=== PATIENT | female | born 1950 ===

== ENCOUNTER 2023-02-12 05:00 | Inpatient (IN) | payer OTHER ==
[2023-02-05 08:50] LABS: HEMATOCRIT 35.7 % (36.0-45.00); MEAN CELL VOLUME 75.9 fL (80.00-100.00); MEAN CORPUSCULAR HEMOGLOBIN 25.4 pg (27.00-32.0); MEAN CORPUSCULAR HGB CONC 33.5 g/dl (32.0-36.0); PLATELET COUNT 287 K/uL (150-450); RED BLOOD COUNT 4.71 M/uL (4.00-6.00); RED CELL DISTRIBUTION WIDTH 15.4 % (11.5-14.5)
[2023-02-05 08:51] LABS: PH,URINE 6.5 (5.0-8.0); URINE APPEARANCE Clear; URINE BILIRRUBIN Negative (NEGATIVE); URINE BLOOD Small; URINE COLOR Yellow; URINE GLUCOSE Negative (NEGATIVE); URINE LEUKOCYTE Negative; URINE NITRATE Negative; URINE UROBILINOGEN 0.2 E.U./dl
[2023-02-05 08:52] LABS: URINE BACTERIA 201.5 uL (0.0-1933); URINE EPITHELIAL CELLS 3.7 uL (0.0-38.8); URINE RBC 57.3 uL (0.0-20.8); URINE WBC 8.9 uL (0.0-23.2)
[2023-02-05 09:11] LABS: URINE PROTEIN 100 (NEGATIVE)
[2023-02-05 09:28] LABS: ALBUMIN 4.6 gm/dL (3.4-5.0); BILIRUBIN TOTAL 0.49 mg/dL (0.3-1.2); CREATININE SERUM 0.81 mg/dL (0.55-1.02); GFR 69.5; POTASSIUM 3.53 mEq/L (3.5-5.1); TOTAL PROTEIN 8.6 gm/dL (6.4-8.2)
[2023-02-05 09:34] LABS: INR 1.03; PARTIAL THROMBOPLASTIN TIME 29.4 SECONDS (22.0-34.0); PROTHROMBIN TIME 10.8 SECONDS (9.0-11.5)
[~2023-02-12] VITALS: Ht 160 cm; Wt 50.8 kg
[~2023-02-12 05:00] MED LIST: ALDACTONE25 MG PO; AMLODIPINE BESY10 MG PO; TOPROL XL50 M1 PO; ZESTORETIC 20-1 EAC1 PO; ZOCOR20 MG PO
== END 2023-02-13 11:29 | disposition home or self-care (01) | DRG 627 ==
LOC: CIR.AMB 05:00 → O/R 15:57 → SURG 15:58 → CIR.AMB 16:00 → SURG 02-13 11:29
PROVIDERS: ADMIT Otolaryngology; ATTEND Otolaryngology
PROC: 0GTK0ZZ Resection of Thyroid Gland, Open Approach (ICD-10-PCS; principal; 2023-02-12 16:00)
DX: C73 Malignant neoplasm of thyroid gland (principal); Z20.822 Contact with and (suspected) exposure to COVID-19